=== PATIENT | female | born 1955 | race American Indian/Alaskan Native ===

== ENCOUNTER 2016-12-17 09:36 | Outpatient (CLI) | payer OTHER ==
--- NOTE | 2016-12-17 15:22 | Mammography Report ---
BILATERAL DIGITAL SCREENING MAMMOGRAM WITH CAD: 12/17/16 09:36:00 CLINICAL: Routine screening.Breast cancer survivor status post right mastectomy and right flap and implant reconstruction.. COMPARISON:12/12/15 FINDINGS: The left breast is heterogeneously dense, which may obscures small masses. A right TRAM reconstruction with an implant is unchanged compared to prior exams. No mass, architectural distortion or suspicious calcifications. IMPRESSION: No mammographic evidence of malignancy. BI-RADS CATEGORY: 2 -- Benign RECOMMENDATION: Routine mammographic screening in one year. COMMENT: Patient follow-up letters are generated via our [employer] application.
== END 2016-12-17 09:37 | disposition home or self-care (01) ==
LOC: SPVWC 09:36
PROVIDERS: ATTEND Family Medicine
DX: Z12.31 Encounter for screening mammogram for malignant neoplasm of breast (principal); Z90.11 Acquired absence of right breast and nipple
CPT/HCPCS: 77067; G0202

== ENCOUNTER 2017-07-29 07:32 | Outpatient (CLI) | payer OTHER | END 2017-07-29 07:33 | disposition home or self-care (01) | LOC: US 07:32 | PROVIDERS: ATTEND Family Medicine | DX: N64.4 Mastodynia (principal); Z98.82 Breast implant status ==

== ENCOUNTER 2017-11-17 13:03 | Outpatient (CLI) | payer OTHER ==
[2017-11-17] MEDS ORDERED: XYLOCAINE TOPICAL 4% TP ONE ×2 (13:14→14:12)
== END 2017-11-17 13:04 | disposition home or self-care (01) ==
LOC: WOUND 13:03
PROVIDERS: ATTEND Surgery
DX: S81.001D Unspecified open wound, right knee, subsequent encounter (principal); I10 Essential (primary) hypertension; E78.00 Pure hypercholesterolemia, unspecified; Z85.3 Personal history of malignant neoplasm of breast; Z90.710 Acquired absence of both cervix and uterus; Z87.891 Personal history of nicotine dependence; X58.XXXD Exposure to other specified factors, subsequent encounter
CPT/HCPCS: 11042; 11045; G0463; 99215

== ENCOUNTER 2017-11-24 10:23 | Outpatient (CLI) | payer OTHER ==
[2017-11-24] MEDS ORDERED: XYLOCAINE TOPICAL 4% TP ONE (10:31)
[2017-11-24] MEDS ORDERED: XYLOCAINE 2%/ EPI 1:200,000 INFILTRATI ONE (10:56)
== END 2017-11-24 10:24 | disposition home or self-care (01) ==
LOC: WOUND 10:23
PROVIDERS: ATTEND Surgery
DX: S81.001D Unspecified open wound, right knee, subsequent encounter (principal); E78.00 Pure hypercholesterolemia, unspecified; Z85.3 Personal history of malignant neoplasm of breast; Z90.710 Acquired absence of both cervix and uterus; Z87.891 Personal history of nicotine dependence; X58.XXXD Exposure to other specified factors, subsequent encounter
CPT/HCPCS: 11042; 11045; G0463; 99213

== ENCOUNTER 2017-12-08 10:22 | Outpatient (CLI) | payer OTHER ==
[2017-12-08] MEDS ORDERED: XYLOCAINE TOPICAL 4% TP ONE ×2 (10:45→10:47)
== END 2017-12-08 10:23 | disposition home or self-care (01) ==
LOC: WOUND 10:22
PROVIDERS: ATTEND Surgery
DX: S81.001D Unspecified open wound, right knee, subsequent encounter (principal); X58.XXXD Exposure to other specified factors, subsequent encounter

== ENCOUNTER 2017-12-15 10:30 | Outpatient (CLI) | payer OTHER ==
[2017-12-15] MEDS ORDERED: XYLOCAINE TOPICAL 4% TP ONE ×2 (10:40→10:52)
== END 2017-12-15 10:31 | disposition home or self-care (01) ==
LOC: WOUND 10:30
PROVIDERS: ATTEND Surgery
DX: S81.001D Unspecified open wound, right knee, subsequent encounter (principal); I10 Essential (primary) hypertension; E78.00 Pure hypercholesterolemia, unspecified; Z85.3 Personal history of malignant neoplasm of breast; Z90.710 Acquired absence of both cervix and uterus; Z87.891 Personal history of nicotine dependence; X58.XXXD Exposure to other specified factors, subsequent encounter

== ENCOUNTER 2017-12-22 10:25 | Outpatient (CLI) | payer OTHER ==
[2017-12-22] MEDS ORDERED: XYLOCAINE TOPICAL 4% TP ONE (10:35)
== END 2017-12-22 10:26 | disposition home or self-care (01) ==
LOC: WOUND 10:25
PROVIDERS: ATTEND Surgery
DX: S81.001D Unspecified open wound, right knee, subsequent encounter (principal); I10 Essential (primary) hypertension; E78.00 Pure hypercholesterolemia, unspecified; Z85.3 Personal history of malignant neoplasm of breast; Z90.710 Acquired absence of both cervix and uterus; Z87.891 Personal history of nicotine dependence; X58.XXXD Exposure to other specified factors, subsequent encounter

== ENCOUNTER 2017-12-23 10:15 | Outpatient (CLI) | payer OTHER ==
--- NOTE | 2017-12-23 16:22 | Mammography Report ---
BILATERAL DIGITAL SCREENING MAMMOGRAM WITH CAD: 12/23/17 CLINICAL: Routine screening.Breast cancer survivor status post right mastectomy with TRAM and implant reconstruction . COMPARISON:12/17/16 FINDINGS: The left breast is heterogeneously dense, which may obscure small masses. The right TRAM reconstruction with an implant is unchanged compared to previous exams. No mass, architectural distortion or suspicious calcifications. IMPRESSION: No mammographic evidence of malignancy. BI-RADS CATEGORY: 2 -- Benign RECOMMENDATION: Routine mammographic screening in one year. COMMENT: Patient follow-up letters are generated by our [employer] application.
== END 2017-12-23 10:16 | disposition home or self-care (01) ==
LOC: SPVWC 10:15
PROVIDERS: ATTEND Family Medicine
DX: Z12.31 Encounter for screening mammogram for malignant neoplasm of breast (principal)
CPT/HCPCS: 77067

== ENCOUNTER 2018-01-05 12:52 | Outpatient (CLI) | payer OTHER | END 2018-01-05 12:53 | disposition home or self-care (01) | LOC: WOUND 12:52 | PROVIDERS: ATTEND Surgery | DX: S81.001D Unspecified open wound, right knee, subsequent encounter (principal); I10 Essential (primary) hypertension; E78.00 Pure hypercholesterolemia, unspecified; Z85.3 Personal history of malignant neoplasm of breast; Z90.710 Acquired absence of both cervix and uterus; Z87.891 Personal history of nicotine dependence; X58.XXXD Exposure to other specified factors, subsequent encounter | CPT/HCPCS: 99213; G0463 ==

== ENCOUNTER 2018-12-25 10:36 | Outpatient (CLI) | payer OTHER ==
--- NOTE | 2018-12-25 15:44 | Mammography Report ---
BILATERAL DIGITAL SCREENING MAMMOGRAM WITH CAD INDICATION: Routine screening mammography. Breast cancer survivor status post right mastectomy with T OLGA and implant reconstruction area TECHNIQUE: Digital bilateral 2D mammography was obtained in the craniocaudal and mediolateral obliq ue projections. This examination was interpreted with the benefit of Computer-Aided Detection analysi s. COMPARISON: 12/23/2017 FINDINGS: Breast Density: The left breast is heterogeneously dense, which may obscure small masses. The right T OLGA reconstruction with implant is unchanged compared to previous exams. There is no evidence of dominant mass, suspicious calcifications or architectural distortion in eith er breast. IMPRESSION:No mammographic evidence of malignancy. BI-RADS Category 2: Benign. No mammographic evidence of malignancy. Recommend routine screening ma mmography in one year. A "normal" or negative report should not discourage follow up or biopsy of a clinically significant f inding. A written summary of these findings will be mailed to the patient. The patient will be entered into a mammography reporting system which will generate a reminder letter for the patient's next appointmen t at the appropriate interval. The [employer] recommends yearly mammograms starting at age 40 and continuing as l jovanna as a woman is in good health. Breast MRI is recommended for women with an approximate 20-25% or greater lifetime risk of breast cancer, including women with a strong family history of breast or ova kristen cancer or who have been treated for Hodgkin's disease. Signer Name: Ash Owens MD Signed: 12/25/2018 3:40 PM Workstation Name: [id number]
== END 2018-12-25 10:37 | disposition home or self-care (01) ==
LOC: SPVWC 10:36
PROVIDERS: ATTEND Internal Medicine
DX: Z12.31 Encounter for screening mammogram for malignant neoplasm of breast (principal)
CPT/HCPCS: 77067

== ENCOUNTER 2020-01-01 10:26 | Outpatient (CLI) | payer OTHER ==
--- NOTE | 2020-01-01 11:42 | Mammography Report ---
DIGITAL SCREENING MAMMOGRAM WITH CAD, 01/01/2020 INDICATION: Routine screening mammography. The patient has a personal history of right breast cancer treated with mastectomy and reconstruction. TECHNIQUE: Digital bilateral 2D mammography was obtained in the craniocaudal and mediolateral obliq ue projections. This examination was interpreted with the benefit of Computer-Aided Detection analysi s. COMPARISON: 07/22/2011, 07/16/2010 FINDINGS: Breast Density: The breasts are heterogeneously dense, which may obscure small masses. There is no evidence of dominant mass, suspicious calcifications or architectural distortion in eithe r breast. There has been previous right mastectomy and reconstruction with silicone implant. Post red uction changes are noted in the left breast. IMPRESSION: Follow up recommendation: Routine yearly BI-RADS Category 2: Benign. A "normal" or negative report should not discourage follow up or biopsy of a clinically significant f inding. A written summary of these findings will be mailed to the patient. The patient will be entered into a mammography reporting system which will generate a reminder letter for the patient's next appointmen t at the appropriate interval. The [employer] recommends yearly mammograms starting at age 40 and continuing as l jovanna as a woman is in good health. Breast MRI is recommended for women with an approximate 20-25% or greater lifetime risk of breast cancer, including women with a strong family history of breast or ova kristen cancer or who have been treated for Hodgkin's disease. Signer Name: Amanda Harden MD Signed: 01/01/2020 11:37 AM Workstation Name: [id number]
== END 2020-01-01 10:27 | disposition home or self-care (01) ==
LOC: SPVWC 10:26
PROVIDERS: ATTEND Surgery
DX: Z12.31 Encounter for screening mammogram for malignant neoplasm of breast (principal); N64.89 Other specified disorders of breast
CPT/HCPCS: 77067

== ENCOUNTER 2021-01-06 09:03 | Outpatient (CLI) | payer OTHER ==
--- NOTE | 2021-01-06 11:50 | Mammography Report ---
Left DIGITAL SCREENING MAMMOGRAM WITH CAD HISTORY: Screening mammogram, status post right breast mastectomy. TECHNIQUE: Routine digital mammographic imaging performed. This examination was interpreted with brown barrientos benefit of Computer-aided Detection analysis. COMPARISON: 01/01/2020, 12/25/2018, 12/23/2017. FINDINGS: Breast Density: heterogeneously dense breast parenchymal pattern which somewhat lessens the sensitivi ty of the evaluation. Digital CC and MLO views demonstrate no mammographic evidence of malignancy. Stable mild post surgic al changes in the left breast. IMPRESSION: No mammographic evidence of malignancy. If the clinical examination remains stable, recommend bilate ral mammogram in approximately one year. BIRADS 2: Benign Finding(s). FURTHER INFORMATION: According to the [employer], yearly mammograms are recommend ed starting at age 40 and continuing as long as a woman is in good health. Clinical Breast Exams shou ld be part of a periodic health exam-about every 3 years for women in their 20s and 30s and every yea r for women 40 and over. Breast self exam is an option for women starting in their 20s. Any breast ch leigha noted on a breast self exam should be reported promptly to the patient's healthcare provider. Br east MRI is recommended for women with an approximately 20-25% or greater lifetime risk of breast can cer, including women with a strong family history of breast or ovarian cancer and women who have been treated for Hodgkin's disease. A negative Mammography report should not discourage follow up or biopsy of a clinically significant f inding and/or abnormality. Dense breast tissue may obscure small neoplasms. The patient will be entered into a reminder system with a target due date for the next screening mamm ogram. Signer Name: Lauri Spaulding MD Signed: 01/06/2021 11:46 AM Workstation Name: [id number]
== END 2021-01-06 09:04 | disposition home or self-care (01) ==
LOC: SPVWC 09:03
PROVIDERS: ATTEND Surgery
DX: Z12.31 Encounter for screening mammogram for malignant neoplasm of breast (principal)